=== PATIENT | female | born 1935 | race Caucasian/White ===

== ENCOUNTER 2018-03-18 11:03 | Outpatient (CLI) | payer MEDICARE, MEDICAID | END 2018-03-18 11:04 | disposition home or self-care (01) | LOC: BICRAD 11:03 | PROVIDERS: ATTEND Family Medicine | DX: M25.531 Pain in right wrist (principal); M85.80 Other specified disorders of bone density and structure, unspecified site ==

== ENCOUNTER 2018-10-14 13:45 | Outpatient (CLI) | payer MEDICARE, MEDICAID ==
--- NOTE | 2018-10-14 15:59 | MRI ---
MRI BRAIN WITH AND WITHOUT CONTRAST: 10/14/18 Multiplanar and multisequential imaging of brain obtained. Postcontrast images obtained administering Multihance IV. INDICATIONS: Followup cavernoma (cavernous hemangioma). Comparison made to MRI of brain 07/17/16. FINDINGS: Mild cortical volume loss. Ventricles have normal size and position. No evidence of restricted diffus ion. Very mild ischemic white matter change. Hemosiderin stain in the medial right cerebral hemisphere near the corpus callosum and cingulate gyru s is unchanged in size and appearance. Cavernoma at this site is again seen on T2 and postcontrast im ages. The size of this small cavernoma is unchanged measuring 67 mm. Small associated developmental v enous anomalies again seen on postcontrast studies. There is no interval change or appearance. No tomas dence of hemorrhage. No other abnormal enhancement. Intracranial internal carotid arteries and cerebral arteries show expected flow voids. Dural venous s inuses are patent. 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 POS: [facility]
== END 2018-10-14 13:46 | disposition home or self-care (01) ==
LOC: TBSIIMAG 13:45
PROVIDERS: ATTEND Neurological Surgery
DX: D18.02 Hemangioma of intracranial structures (principal)
CPT/HCPCS: 70553; 82565

== ENCOUNTER 2018-12-23 13:45 | Outpatient (CLI) | payer MEDICARE, MEDICAID ==
--- NOTE | 2018-12-23 14:51 | BD ---
Exam: DEXA Bone Density History: 83-year-old post-menopausal female for screening. Comparison: 10-04-16 Lumbar Spine: BMD (g/cm2) L1 0.876 T-Score: -1.0 L2 0.953 T-Score: -0.7 L3 1.048 T-Score: -0.3 L4 1.008 T-Score: -0.5 L1-L4 0.976 T-Score: -0.6 Femoral Neck: 0.565 T-Score: -2.6 Total Femur: 0.660 T-Score: -2.3 Impression: Osteoarthrosis. This patient has a between 6 and 7 x increased risk of fracture when compared to nataly carmela patients with normal bone mineral density. POS: [facility]
--- NOTE | 2019-01-02 10:48 | MMO ---
Bilateral MAMMO Bilat Screen [facility]. CLINICAL HISTORY: Patient is 83 years old and is seen for screening. The patient has no family history of breast cancer. The patient has no personal history of cancer. The patient has a history of right Stereotatic Biopsy in - benign - x3. VIEWS: The views performed were: bilateral craniocaudal and bilateral mediolateral oblique. FILMS COMPARED: The present examination has been compared to prior imaging studies performed at [facility] on 02/17/2013, 04/19/2014, 03/12/2016, 10/04/2016 and 05/15/2017. MAMMOGRAM FINDINGS: There are scattered fibroglandular densities. Finding 1: There are stable benign appearing calcifications seen in both breasts. Finding 2: There is a biopsy clip seen in the right breast. There are no suspicious masses, calcifications or areas of architectural distortion. IMPRESSION: ALL ABOVE FINDINGS ARE BENIGN. A ROUTINE FOLLOW-UP MAMMOGRAM IN 1 YEAR IS RECOMMENDED. THE RESULTS OF THIS EXAM WERE SENT TO THE PATIENT. ACR BI-RADS Category 2 - Benign finding MAMMOGRAPHY NOTE: 1. A negative mammogram report should not delay a biopsy if a dominant of clinically suspicious mass is present. 2. Approximately 10% to 15% of breast cancers are not detected by mammography. 3. Adenosis and dense breasts may obscure an underlying neoplasm.
== END 2018-12-23 13:46 | disposition home or self-care (01) ==
LOC: BICMAMMO 13:45
PROVIDERS: ATTEND Obstetrics & Gynecology
DX: Z12.31 Encounter for screening mammogram for malignant neoplasm of breast (principal); M81.0 Age-related osteoporosis without current pathological fracture; M85.80 Other specified disorders of bone density and structure, unspecified site; M19.90 Unspecified osteoarthritis, unspecified site
CPT/HCPCS: 77063; 77067; 77080

== ENCOUNTER 2019-03-09 03:02 | Outpatient (CLI) | payer MEDICARE, MEDICAID ==
[2019-03-09 11:41] LABS: #Eosinphils 0.1 thou/uL (0.0-0.7); #Lymphocytes 1.1 thou/uL (1.20-3.40); #Monocytes 0.3 thou/uL (0.11-0.59); %Basophils 0.3 % (0.0-1.0); %Eosinophils 1.9 % (0.0-10.0); %Lymphocytes 32.1 % (21.0-51.0); %Monocytes 9.2 % (0.0-10.0); %Neutrophils 56.5 % (42.0-75.0); Hemoglobin 12.9 g/dL (12.0-16.0); Mean Corpuscular HGB CONC 32.6 g/dL (32.0-36.0); Mean Corpuscular Hemoglobin 32.5 pg (27.0-31.0); Mean Corpuscular Volume 99.7 fL (78.0-98.0); Mean Platelet Volume 8.3 fL (7.4-10.4); Platelet Count 168 thou/uL (130-400); Red Blood Cell (RBC) Count 3.96 mill/uL (4.20-5.40); White Blood Cell (WBC) Count 3.6 thou/uL (4.8-10.8)
[2019-03-09 12:09] LABS: Anion Gap 11 mmol/L (10-20); BUN (Urea Nitrogen) 26 mg/dL (9.8-20.1); Calc. Creatinine Clearance 0 mL/min (70-130); Calcium 10.1 mg/dL (7.8-10.44); Carbon Dioxide 29 mmol/L (23-31); Chloride 103 mmol/L (98-107); Estimated GFR-MDRD 67; Glucose 88 mg/dL (83-110); Potassium 4.2 mmol/L (3.5-5.1); Sodium 139 mmol/L (136-145)
--- NOTE | 2019-03-09 17:23 | EKG ---
Test Reason : Blood Pressure : / mmHG Vent. Rate : 061 BPM Atrial Rate : 061 BPM P-R Int : 184 ms QRS Dur : 106 ms QT Int : 448 ms P-R-T Axes : 078 067 077 degrees QTc Int : 450 ms Normal sinus rhythm Incomplete right bundle branch block Septal infarct , age undetermined Abnormal ECG When compared with ECG of 31-JAN-2010 12:43, Septal infarct is now Present Confirmed by DR. Hannah BOLANOS ([id number]) on 03/09/2019 5:23:15 PM Referred By: RONALD Confirmed By:DR. Hannah BOLANOS
== END 2019-03-09 03:03 | disposition home or self-care (01) ==
LOC: LABBT 03:02
PROVIDERS: ATTEND Specialist
DX: Z01.818 Encounter for other preprocedural examination (principal); K40.90 Unilateral inguinal hernia, without obstruction or gangrene, not specified as recurrent
CPT/HCPCS: 80048; 85025; 93005; 93010

== ENCOUNTER 2019-04-17 06:05 | Day surgery (SDC) | payer MEDICARE, MEDICAID ==
--- NOTE | 2019-03-09 11:21 | HP ---
HISTORY OF PRESENT ILLNESS: Kasie Mendoza is an 83-year-old thin white female, who has had problems with right inguinal hernia for over a week. She is active. This is causing her pain. She has been seeing Dr. Priyank Evans. She has been reassured that this is not cancer. This does vary in size. The patient's plan is for robotic right inguinal hernia repair with mesh, possible left if indicated. She understands risks of infection, bleeding, reoperation, and consents. ALLERGIES: PENICILLIN, CODEINE. SOCIAL HISTORY: Tobacco, none. Alcohol, none. MEDICATIONS: 1. Elmiron. 2. Calcium. 3. . 4. Magnesium. 5. Glucosamine. 6. Alendronate. 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 Ewing. PAST SURGICAL HISTORY: Tonsillectomy, appendectomy, cholecystectomy (I performed this), partial hysterectomy, breast biopsy, rotator cuff surgery, toe surgery, colonoscopy by Dr. Guerrero in 2010 due for that again. REVIEW OF SYSTEMS: Ten-point noncontributory. PHYSICAL EXAMINATION: VITAL SIGNS: 101/57, 68, 97, 121 pounds, 66 inches. HEAD, EYES, EARS, NOSE, AND THROAT: Unremarkable. Eyes; sclerae nonicteric. LUNGS: Clear to auscultation. CARDIAC: Regular rate and rhythm without murmur or gallop. ABDOMEN: Soft and nontender. No masses. Abdomen on standing, she has a right inguinal hernia. I do not appreciate a hernia on the left. EXTREMITIES: Unremarkable. No ankle edema. NEUROLOGICAL: Intact. No focal deficit. SKIN: Normal color. Skin turgor normal. Skin, nonjaundiced. LYMPHATICS: No lymphadenopathy of neck, axilla, or groins. ASSESSMENT: Right inguinal hernia. PLAN: Laparoscopic robotic mesh repair of right inguinal hernia and left if indicated based on findings. Clinically and physical exam does not reveal left, but we will evaluate that laparoscopically robotically. Job ID: [id number]
[2019-04-16 10:58] VITALS: BMI 18.4
[2019-04-17] MEDS ORDERED: Ketorolac Tromethamine 30 MG/ML VIAL ONE (06:36)
[2019-04-17] MEDS ORDERED: Levofloxacin 500 mg/D5W 100 ml Premix Bag ONE (06:45)
[2019-04-17] MEDS ORDERED: Fentanyl 100 MCG/2 ML VIAL ONE (06:55)
[2019-04-17] MEDS ORDERED: Bupivacaine HCl 0.5%/Epinephrine 1:200,000/PF 30 ml Vial ONE (07:03)
[2019-04-17 07:17] LABS: #Basophils 0.1 thou/uL (0.0-0.2); #Eosinphils 0.1 thou/uL (0.0-0.7); #Lymphocytes 1.2 thou/uL (1.20-3.40); #Monocytes 0.4 thou/uL (0.11-0.59); #Neutrophils 2.3 thou/uL (1.40-6.50); %Basophils 1.8 % (0.0-1.0); %Eosinophils 2.6 % (0.0-10.0); %Lymphocytes 29.7 % (21.0-51.0); %Monocytes 9.3 % (0.0-10.0); %Neutrophils 56.7 % (42.0-75.0); Hemoglobin 13.1 g/dL (12.0-16.0); Mean Corpuscular HGB CONC 33.1 g/dL (32.0-36.0); Mean Corpuscular Hemoglobin 32.7 pg (27.0-31.0); Mean Platelet Volume 8.3 fL (7.4-10.4); Platelet Count 155 thou/uL (130-400); RBC Distribution Width 12.3 % (11.5-14.5); Red Blood Cell (RBC) Count 4.01 mill/uL (4.20-5.40)
--- NOTE | 2019-04-17 07:23 | RAD ---
EXAM: Chest 2 views: HISTORY: Preoperative radiograph COMPARISON: 07/06/2004 FINDINGS: There is a normal-sized cardiomediastinal silhouette. A stable calcified granuloma projects over the right lower lobe. There is no evidence of consolidation or pleural effusion. The bones are unremarkable. IMPRESSION: No evidence of acute cardiopulmonary disease
[2019-04-17 07:36] LABS: Anion Gap 13 mmol/L (10-20); BUN (Urea Nitrogen) 20 mg/dL (9.8-20.1); Calc. Creatinine Clearance 46 mL/min (70-130); Calcium 9.6 mg/dL (7.8-10.44); Carbon Dioxide 24 mmol/L (23-31); Chloride 106 mmol/L (98-107); Estimated GFR-MDRD 66; Glucose 89 mg/dL (83-110); Sodium 139 mmol/L (136-145)
--- NOTE | 2019-04-17 10:49 | OP ---
DATE OF PROCEDURE: 04/17/2019 PREOPERATIVE DIAGNOSIS: Right inguinal hernia. POSTOPERATIVE DIAGNOSIS: Right inguinal hernia, indirect. PROCEDURE PERFORMED: Robot 3DMax medium mesh repair, right inguinal hernia. ANESTHESIA: General, local 0.5% Marcaine with epinephrine. DESCRIPTION OF PROCEDURE: The patient was taken to the operating room, where under general anesthesia, Carlton catheter was placed before the procedure, removed at the end with post-fill 180 mL left to facilitate void prior to discharge. Abdomen was prepared with ChloraPrep and draped in routine fashion. Local anesthetic 0.5% Marcaine with epinephrine was infiltrated in the skin and subcutaneous tissue about each port site. Supraumbilical left of midline incision was made. Pneumoperitoneum to 15 mmHg was obtained with a Veress needle and replaced with an 11 balloon port. The balloon was inflated, and the port was properly positioned. Laparoscope was inserted, and remainder of the ports were placed under laparoscopic visualization. Bilateral far lateral mid abdominal incision was made, and 8-mm ports were placed. The patient was placed in Trendelenburg. Robot was docked, positioned, and oriented, and robot hernia repair was undertaken. Peritoneal flap was dissected free from the midline to the anterior superior iliac spine dissecting the peritoneal flap posteriorly exposing the retroperitoneum, and the hernia sac was dissected free from the inguinal canal. The hernia sac once dissected free, the Ortega ligament was identified. A medium 3DMax mesh was placed, positioned properly, and secured to the Ortega ligament with 3-0 Vicryl suture. It was then properly laid out in position covering the retroperitoneum at least 6 cm posterior and proximal to the hernia defect. Once the mesh was properly positioned, a 2-0 Vicryl suture was held in place to the abdominal wall to the patient's right of the inferior epigastric vessels. At this point, the peritoneum was then closed with continuous suture of 3-0 V-Loc suture. A separate V-Loc suture was used to make a small repair covering the small defect with the redundant hernia sac. Once this was completed, the left pelvis was inspected, and no hernia was present. Pneumoperitoneum was reduced. All instruments were removed, and all skin incisions were approximated with interrupted subdermal 4-0 Monocryl, and [place] glue was applied. Job ID: [id number]
[2019-04-17] MEDS ORDERED: ePHEDrine 50 MG/ML VIAL ONE (16:30)
[2019-04-17] MEDS ORDERED: PHENYLEPHRINE-NS 100 MCG/ML 10 ML SYRINGE ONE (16:30)
[2019-04-17] MEDS ORDERED: Lidocaine 1% PF 5 ML VIAL ONE (16:30)
[2019-04-17] MEDS ORDERED: Ondansetron PF 4 MG/2 ML Vial ONE (16:30)
[2019-04-17] MEDS ORDERED: Glycopyrrolate 0.2 MG/ML 5 ML SYRINGE ONE (16:30)
[2019-04-17] MEDS ORDERED: Rocuronium Bromide 10 MG/ML (10ML VIAL) ONE (16:30)
[2019-04-17] MEDS ORDERED: PROPOFOL 200 MG/20 ML VIAL ONE (16:30)
== END 2019-04-17 13:54 | disposition home or self-care (01) ==
LOC: SDC 06:05
PROVIDERS: ATTEND Specialist
PROC: 0YU54JZ Supplement Right Inguinal Region with Synthetic Substitute, Percutaneous Endoscopic Approach (ICD-10-PCS; principal; 2019-04-17)
DX: K40.90 Unilateral inguinal hernia, without obstruction or gangrene, not specified as recurrent (principal); G35 Multiple sclerosis; E78.5 Hyperlipidemia, unspecified; Z79.83 Long term (current) use of bisphosphonates; Z79.899 Other long term (current) drug therapy; Z88.0 Allergy status to penicillin; Z88.5 Allergy status to narcotic agent; Z98.890 Other specified postprocedural states
CPT/HCPCS: 49650; 71046; 80048; 85025; C1781; J0131; J0670; J1885; J1956; J2001; J2405; J2704; J3010; J3490

== ENCOUNTER 2019-06-17 14:25 | Outpatient (CLI) | payer MEDICARE, MEDICAID ==
[2019-06-17] MEDS ORDERED: ISOVUE-370 76%-LOCM 1 ML ONE (15:42)
--- NOTE | 2019-06-17 15:58 | CT ---
EXAM: CT ABDOMEN AND PELVIS HISTORY: Weight loss. Fatigue. Weakness. COMPARISON: None. Procedure: Multiple contiguous axial images were obtained and a CT of the abdomen and pelvis with IV contrast. C oronal reformats were performed. FINDINGS: Lower Chest: Calcified granuloma in the right lower lobe measuring 8 mm. Linear opacities are presume d to be due to chronic change. Vessels: Normal caliber aorta. Sclerosis and tortuosity of the abdominal aorta is identified. Heart: Normal heart size. No significant pericardial fluid. Abdomen: Portal vein:Patent Gallbladder: Surgically absent Liver: Multiple hypodensities in the hepatic parenchyma, which are well-circumscribed. Largest hypode nsity measures 1.9 x 1.1 cm, compatible with a cyst in the right hepatic lobe. There is a second 1.4 x 1.0 cm cyst in the right hepatic lobe. Remaining hypodensities are too small to characterize. Pancreas: within normal limits. Spleen: within normal limits. Adrenals: within normal limits. Kidneys: Symmetric enhancement. Bilaterally no obstructive uropathy. 0.7 cm hypodensity in the left r enal cortex, too small to characterize but statistically favored to be a cyst. Peritoneum: No ascites or free air, no fluid collection. Bowel: There does appear to be some edema involving the wall of the stomach. Duodenum and small bowel loops are unremarkable. Ileocecal junction is unremarkable. Appendix is not appreciated. No elevation of the cecal apex. Contrast and fecal material noted colon. There does appear to be mucosal thickening involving the sigmoid colon and rectum which may in part be due to inadequate distention. However, mucosal thickening at the level of the rectum is somewhat circumferential in the possibility of a mass cannot be excluded. Direct visualization is recommended. Mesentery and Retroperitoneum: No enlarged mesenteric or retroperitoneal lymph nodes. Abdominal Wall: within normal limits. Pelvis: Reproductive Organs: Surgically absent uterus Pelvis: within normal limits. Bladder: within normal limits. Bones: within normal limits. IMPRESSION: 1. Possible neoplastic process involving the rectum and/or sigmoid colon. Direct visualization is rec ommended. 2. Nonspecific edema involving the wall of stomach. 3. Multiple hepatic cysts. CODE T
== END 2019-06-17 14:26 | disposition home or self-care (01) ==
LOC: BICCT 14:25
PROVIDERS: ATTEND Family Medicine
DX: R53.83 Other fatigue (principal); R63.4 Abnormal weight loss; K76.89 Other specified diseases of liver; R60.0 Localized edema
CPT/HCPCS: 74177; Q9966

== ENCOUNTER 2019-07-13 15:01 | Outpatient (CLI) | payer MEDICARE, MEDICAID ==
[~2019-07-13 15:01] MED LIST: Iopamidol 370 76% 100 ML VIAL ONE
--- NOTE | 2019-07-13 15:37 | CT ---
CT PULMONARY ANGIOGRAM WITH IV CONTRAST AND 3-D POSTPROCESSING: HISTORY:Shortness of breath FINDINGS: There is good contrast opacification of the pulmonary arterial vasculature without filling defects to suggest pulmonary embolism. The thoracic aorta is well opacified without aneurysm or dissection. No pleural or pericardial effusions are seen. No pneumothoraces are noted. There are patchy scattered areas of consolidation in the lower lung zone s. There are degenerative changes in the spine. Upper abdominal tomograms demonstrate a 1.5 cm low-density lesion in the right lobe of the liver whic h should be evaluated with ultrasound. IMPRESSION: 1. No CT evidence of pulmonary embolism. 2. Probable pneumonia. Follow-up CT scan should be obtained without IV contrast after course of antib iotics. 3. Ultrasound evaluation of the liver lesion is recommended.
== END 2019-07-13 15:02 | disposition home or self-care (01) ==
LOC: CT 15:01
PROVIDERS: ATTEND Family Medicine
DX: R06.02 Shortness of breath (principal)
CPT/HCPCS: 36415; 71275; 80048; 85025; Q9967

== ENCOUNTER 2019-07-21 09:43 | Outpatient (CLI) | payer MEDICARE, MEDICAID ==
--- NOTE | 2019-07-21 10:38 | ULT ---
US Gallbladder RUQ: 07/21/2019 12:00 AM CLINICAL HISTORY: Liver cysts. STUDY: Limited right upper quadrant ultrasound of abdomen. COMPARISON: CT abdomen/pelvis 06/17/2019 FINDINGS: Liver: Size: Normal. Echogenicity: Normal. Contour: Smooth. Mass: Multiple anechoic cysts measuring up to 2.1 cm in size. Bile ducts: No intrahepatic or extrahepatic biliary dilatation. Common bile duct measures 4 mm. Gallbladder: Absent Pancreas: Head, body, and tail appear normal. Right kidney: No pelvicalyceal dilatation. Right kidney measuring 9.0 cm in length. IMPRESSION: Hepatic cysts
== END 2019-07-21 09:44 | disposition home or self-care (01) ==
LOC: ULT 09:43
PROVIDERS: ATTEND Family Medicine
DX: K76.89 Other specified diseases of liver (principal)
CPT/HCPCS: 76705

== ENCOUNTER 2019-12-24 10:48 | Outpatient (CLI) | payer MEDICARE, MEDICAID ==
--- NOTE | 2019-12-24 12:20 | MMO ---
Bilateral MAMMO Bilat Screen [facility]. CLINICAL HISTORY: Patient is 84 years old and is seen for screening. The patient has no family history of breast cancer. The patient has no personal history of cancer. The patient has a history of right Stereotatic Biopsy in - benign - x3. VIEWS: The views performed were: bilateral craniocaudal with tomosynthesis and bilateral mediolateral oblique with tomosynthesis. FILMS COMPARED: The present examination has been compared to [place] [facility] [place] 05/15[place] 12/23/2018. This study has been interpreted with the assistance of computer-aided detection. MAMMOGRAM FINDINGS: The breasts are heterogeneously dense, which could obscure a lesion on mammography. Finding 1: There are stable calcifications seen in both breasts. Finding 2: There is a biopsy clip seen in the right breast. There are no suspicious masses, suspicious calcifications, or new areas of architectural distortion. IMPRESSION: THERE IS NO MAMMOGRAPHIC EVIDENCE OF MALIGNANCY. A ROUTINE FOLLOW-UP MAMMOGRAM IN 1 YEAR IS RECOMMENDED. THE RESULTS OF THIS EXAM WERE SENT TO THE PATIENT. ACR BI-RADS Category 2 - Benign finding MAMMOGRAPHY NOTE: 1. A negative mammogram report should not delay a biopsy if a dominant of clinically suspicious mass is present. 2. Approximately 10% to 15% of breast cancers are not detected by mammography. 3. Adenosis and dense breasts may obscure an underlying neoplasm. Reported by: LEVON WILSON MD Electonically Signed: [id number]
== END 2019-12-24 10:49 | disposition home or self-care (01) ==
LOC: BICMAMMO 10:48
PROVIDERS: ATTEND Obstetrics & Gynecology
DX: Z12.31 Encounter for screening mammogram for malignant neoplasm of breast (principal); Z91.89 Other specified personal risk factors, not elsewhere classified
CPT/HCPCS: 77063; 77067

== ENCOUNTER 2020-02-03 16:00 | Emergency (ER) | payer MEDICARE, MEDICAID ==
[2020-02-03 16:53] LABS: #Eosinphils 0.1 thou/uL (0.0-0.7); #Lymphocytes 1.1 thou/uL (1.20-3.40); #Monocytes 0.5 thou/uL (0.11-0.59); #Neutrophils 3.4 thou/uL (1.40-6.50); %Basophils 0.7 % (0.0-1.0); %Eosinophils 1.3 % (0.0-10.0); %Lymphocytes 20.9 % (21.0-51.0); %Monocytes 9.5 % (0.0-10.0); %Neutrophils 67.7 % (42.0-75.0); Hemoglobin 12.3 g/dL (12.0-16.0); Mean Corpuscular Hemoglobin 34.4 pg (27.0-31.0); Mean Platelet Volume 7.6 fL (7.4-10.4); Platelet Count 179 thou/uL (130-400); RBC Distribution Width 11.3 % (11.5-14.5); Red Blood Cell (RBC) Count 3.59 mill/uL (4.20-5.40)
[2020-02-03 17:17] LABS: ALT (SGPT) 23 U/L (8-55); AST (SGOT) 26 U/L (5-34); Albumin 4.3 g/dL (3.4-4.8); Alkaline Phosphatase 54 U/L (40-110); Anion Gap 11 mmol/L (10-20); BUN (Urea Nitrogen) 25 mg/dL (9.8-20.1); Bilirubin, Total 0.6 mg/dL (0.2-1.2); Calc. Creatinine Clearance 0 mL/min (70-130); Calcium 10.4 mg/dL (7.8-10.44); Carbon Dioxide 30 mmol/L (23-31); Chloride 104 mmol/L (98-107); Estimated GFR-MDRD 46; Globulin 2.1 g/dL (2.4-3.5); Glucose 141 mg/dL (83-110); Potassium 4.3 mmol/L (3.5-5.1); Protein, Total 6.4 g/dL (6.0-8.3); Sodium 141 mmol/L (136-145)
--- NOTE | 2020-02-03 17:58 | CT ---
CT PULMONARY ANGIOGRAM WITH IV CONTRAST AND 3D MIP RECONSTRUCTION: 02/03/20 PROVIDED CLINICAL HISTORY: Shortness of breath. FINDINGS: Comparison 07/13/19. There is no evidence for a central or segmental pulmonary embolus. Vascular calcification is noted in volving the aortic arch. There is residual scarring or atelectasis present at the right lung base and right middle lobe. Emphysematous changes are seen. There is a 5 mm right lower lobe pulmonary nodule . There is also a 5 to 6 mm left lower lobe pulmonary nodule. These appear near with respect to prior . There is no pleural fluid or pneumothorax apparent. The airway appears patent and of normal caliber. The visualized portions of the upper abdomen demonstrate no significant abnormality. The osseous structures demonstrate no concerning lytic or blastic lesions. IMPRESSION: 1. No evidence for central or segmental pulmonary embolus. 2. Bilateral lower lobe pulmonary nodules, new with respect to prior. 3-6 month follow-up chest CT is recommended. POS: JOSE MARTIN
--- NOTE | 2020-02-05 13:10 | EKG ---
Test Reason : Blood Pressure : / mmHG Vent. Rate : 148 BPM Atrial Rate : 148 BPM P-R Int : 000 ms QRS Dur : 106 ms QT Int : 212 ms P-R-T Axes : 068 018 051 degrees QTc Int : 332 ms Undetermined rhythm Low voltage QRS Incomplete right bundle branch block Nonspecific T wave abnormality Abnormal ECG Confirmed by IBETH TOBIN, TRI ([id number]), clinical editor CARLOS NAJERA ([id number]) on 02/05/2020 1:10:20 PM Referred By: Confirmed By:TRI CRISTINA MD
== END 2020-02-03 18:45 | disposition home or self-care (01) ==
LOC: ERS 16:00
DX: R91.1 Solitary pulmonary nodule (principal); Z87.891 Personal history of nicotine dependence; Z79.899 Other long term (current) drug therapy
CPT/HCPCS: 71275; 80053; 84484; 85025; 93005

== ENCOUNTER 2020-08-22 08:20 | Outpatient (CLI) | payer MEDICARE, MEDICAID ==
[2020-08-22] MEDS ORDERED: Magnevist 469MG/ML 20 ML VIAL ONE (09:55)
--- NOTE | 2020-08-22 10:01 | MRI ---
Exam: Brain MRI with and without contrast HISTORY: Follow-up hemangioma. Patient has been feeling weird and dizzy for the past 2 weeks. COMPARISON: 10/14/2018 FINDINGS: Gradient echo sequence: Stable hemosiderin deposition in the lung associated with a previous identifi ed cavernoma centered along the medial aspect of the right frontal lobe. No new areas of hypointensity are noted in the axial gradient echo sequence. Calvarium: Appropriate T1 marrow signal intensity Midline brain parenchyma: Unremarkable Cerebrum:No parenchymal mass, mass effect or midline shift. Age-appropriate atrophy. Cortical burgess-wh ite matter differentiation is preserved. Scattered T2 and FLAIR white matter hyperintensities are felt to be due to chronic small vessel ischemic change Ventricles: No evidence of hydrocephalus. Sinuses and mastoid air cells: Adequate aeration Diffusion: Central arterial flow is maintained. Absent restricted diffusion. Postcontrast images: No pathologic enhancement of the brain parenchyma. Previously noted developmenta l venous venous anomaly is less evident on the current examination. Minimal associated enhancement with regards to the aforementioned cavernoma. Degree of enhancement is unchanged. IMPRESSION: 1. No pathologic enhancement the brain parenchyma. 2. Absent restricted diffusion. No acute infarct 3. Stable cavernoma along the medial aspect of the right cerebellar hemisphere. Currently, the tempor al lobe measures 0.7 x 0.8 cm, previously measuring 0.7 x 0.8 cm.
== END 2020-08-22 08:21 | disposition home or self-care (01) ==
LOC: TBSIIMAG 08:20
PROVIDERS: ATTEND Neurological Surgery
DX: D18.00 Hemangioma unspecified site (principal)
CPT/HCPCS: 70553; 82565; A9579

== ENCOUNTER 2021-01-03 14:12 | Outpatient (CLI) | payer MEDICARE, MEDICAID | END 2021-01-03 14:13 | disposition home or self-care (01) | LOC: BICMAMMO 14:12 | PROVIDERS: ATTEND Obstetrics & Gynecology | DX: Z12.31 Encounter for screening mammogram for malignant neoplasm of breast (principal); Z91.89 Other specified personal risk factors, not elsewhere classified | CPT/HCPCS: 77063; 77067 ==

== ENCOUNTER 2021-01-19 13:04 | Outpatient (CLI) | payer MEDICARE, MEDICAID | END 2021-01-19 13:05 | disposition home or self-care (01) | LOC: BICMRI 13:04 | PROVIDERS: ATTEND Nurse Practitioner Family | DX: M54.14 Radiculopathy, thoracic region (principal); N28.9 Disorder of kidney and ureter, unspecified | CPT/HCPCS: 72146 ==

== ENCOUNTER 2021-03-13 15:34 | Emergency (ER) | payer MEDICARE, MEDICAID ==
[2021-03-13] MEDS ORDERED: Lidocaine 1% (PF) 30 ML VIAL ONE (16:42)
[2021-03-13 16:53] LABS: #Eosinphils 0.1 thou/uL (0.0-0.7); #Lymphocytes 1.7 thou/uL (1.20-3.40); #Monocytes 0.5 thou/uL (0.11-0.59); #Neutrophils 2.5 thou/uL (1.40-6.50); %Basophils 0.4 % (0.0-1.0); %Eosinophils 1.6 % (0.0-10.0); %Lymphocytes 35.4 % (21.0-51.0); %Monocytes 9.9 % (0.0-10.0); %Neutrophils 52.7 % (42.0-75.0); Hemoglobin 13.5 g/dL (12.0-16.0); Mean Corpuscular HGB CONC 33.1 g/dL (32.0-36.0); Mean Corpuscular Hemoglobin 33.7 pg (27.0-31.0); Mean Platelet Volume 7.4 fL (7.4-10.4); Platelet Count 212 thou/uL (130-400); RBC Distribution Width 12.2 % (11.5-14.5); Red Blood Cell (RBC) Count 3.99 mill/uL (4.20-5.40); White Blood Cell (WBC) Count 4.8 thou/uL (4.8-10.8)
[2021-03-13 17:13] LABS: ALT (SGPT) 22 U/L (8-55); AST (SGOT) 26 U/L (5-34); Albumin 4.3 g/dL (3.4-4.8); Alkaline Phosphatase 64 U/L (40-110); Anion Gap 11 mmol/L (10-20); BUN (Urea Nitrogen) 17 mg/dL (9.8-20.1); Bilirubin, Total 0.5 mg/dL (0.2-1.2); Calc. Creatinine Clearance 0 mL/min (70-130); Calcium 10.5 mg/dL (7.8-10.44); Carbon Dioxide 25 mmol/L (23-31); Chloride 105 mmol/L (98-107); Globulin 2.9 g/dL (2.4-3.5); Glucose 89 mg/dL (83-110); Potassium 4.3 mmol/L (3.5-5.1); Protein, Total 7.2 g/dL (5.8-8.1); Sodium 137 mmol/L (136-145)
[2021-03-13] MEDS ORDERED: Bacitracin 1 PK ONE (18:00)
== END 2021-03-13 18:20 | disposition home or self-care (01) ==
LOC: ERS 15:34
DX: R42 Dizziness and giddiness (principal); S61.412A Laceration without foreign body of left hand, initial encounter; W22.8XXA Striking against or struck by other objects, initial encounter; J44.9 Chronic obstructive pulmonary disease, unspecified; Z87.891 Personal history of nicotine dependence
CPT/HCPCS: 12002; 36415; 70450; 71046; 80053; 84484; 85025; 93005; J2001

== ENCOUNTER 2022-02-27 12:25 | Outpatient (CLI) | payer MEDICARE, MEDICAID ==
[~2022-02-27 12:25] MED LIST changes: -Iopamidol 370 76% 100 ML VIAL ONE; +Magnevist 469MG/ML 20 ML VIAL ONE
== END 2022-02-27 12:26 | disposition home or self-care (01) ==
LOC: TBSIIMAG 12:25
PROVIDERS: ATTEND Neurological Surgery
DX: D18.09 Hemangioma of other sites (principal)
CPT/HCPCS: 70553; 82565; A9579